=== PATIENT | female | born 1965 | race Caucasian/White ===

== ENCOUNTER 2018-02-08 21:09 | Emergency (ER) | payer OTHER ==
--- NOTE | 2018-02-08 21:26 | PDOC ---
History of Present Illness - General History Source: Patient Exam Limitations: No Limitations - General Chief Complaint: Pain, Acute Stated Complaint: STRESSED/CHEST PAIN Time Seen by Provider: 02/08/18 21:16 - History of Present Illness Initial Comments: This patient is a 52 year old female with PMHx of anxiety (on medication), extra heart beats & slow heart rate, who presents with chest pain around 8: 30pm. Patient states that today she has been having an especially stressful day. She states that she is in the process of moving and went to the [facility] today to take care of some tickets. She states that she has been busy running around doing various errands. She states that about 30 minutes prior to arrival she began experiencing chest pain. She states that it is not sharp but feels like a sinking pressure-like feeling. She states that it does not radiate to her jaw or arm. She states that she does suffer from anxiety and used to see a dental technologist 2 years ago who she had a positive stress test with but a negative angiogram. This unnerved her so she decided to see a new dental technologist. She states that she was put on a Holter monitor and was told by this dental technologist that she has a few extra beats but was never formally diagnosed with an arrhythmia. She states that her chest pain has mostly subsided since arriving to the ER Denies any recent nausea, vomiting, or shortness of breath. Denies any abdominal pain or lower extremity swelling. ROS General: No fevers or chills, no weakness, no weight loss HEENT: No change in vision. No sore throat, No ear pain Cardiovascular: +chest pain, no shortness of breath Respiratory:No cough, or wheezing. Gastrointestinal: No nausea, vomiting, diarrhea or constipation, No rectal bleeding Genitourinary: No dysuria, hematuria, or frequency Musculoskeletal: No joint or muscle pain or swelling Neurologic: No headache, vertigo, dizziness or loss of consciousness Psychiatric: No depression Skin: No rashes or easy bruising Endocrine: No increased thirst or abnormal weight change Allergic: No skin or latex allergy All other systems reviewed and normal PE General: Well-nourished well-developed individual, no acute distress HEENT: Throat: Normal, tonsils normal, no erythema or exudate Neck: Supple, no meningeal signs, no lymphadenopathy Eyes:Pupils equal reactive and round, extraocular motion intact Chest: Nontender to palpation Cardiac: Bradycardia. S1-S2 normal, regular rhythm, no murmurs rubs or gallops Respiratory: Lungs clear to auscultation bilateral Abdomen: Soft, nondistended, normal bowel sounds, nontender to palpation diffusely Extremities: Warm, dry, no cyanosis, clubbing, or edema Skin: No rashes Neuro: Alert and oriented x3, nonfocal exam, grossly intact, normal gait Psych: Normal mood and affect (Connie Ferrell) 02/08/18 22:28 A portion of this note was documented by scribe services under my direction. I have reviewed the details of the note, within reason, and agree with the documentation. The case summary and management plan written by me. Assessment and plan: This is a 52-year-old female who comes in complaining of approximately one hour of Septra sternal chest discomfort. Patient has history significant for chest pain in the past that resulted in a negative cardiac catheter. Patient's EKG showed a rate of 50, normal intervals no acute ST-T wave changes normal EKG with the exception of some bradycardia Patient says that her heart rate is always in the 50s sometimes lower Patient's discomfort had premature resolved at the time of my evaluation Patient's troponin was not measurable. Patient's heart score was 2 02/08/18 22:32 (Jeet Ruiz I) Past History - Past Medical History Allergies/Adverse Reactions: Allergies Allergy/AdvReac Type Severity Reaction Status Date / Time clarithromycin [From Biaxin] Allergy Verified 02/08/18 21:12 erythromycin base Allergy Verified 02/08/18 21:13 Penicillins Allergy Verified 02/08/18 21:11 Home Medications: Ambulatory Orders Sertraline HCl [Zoloft] 25 mg PO HS 02/08/18 Review of Systems - Review of Systems Comments:: 02/08/18 21:43 see HPI (Connie Ferrell) *Physical Exam - Vital Signs Last Vital Signs Temp Pulse Resp BP Pulse Ox 97.9 F 56 L 18 128/79 100 02/08/18 21:24 02/08/18 21:24 02/08/18 21:24 02/08/18 21:24 02/08/18 21:24 - Physical Exam Comments: 02/08/18 21:43 see HPI (Connie Ferrell) Heart Score/ECG Review - History History: Slightly suspicious - Electrocardiogram EKG: Normal - Age Age: 45-65 - Risk Factors Risk Factors Heart Score: Yes Hx Hypercholesterolemia, Yes Positive family hx of cardiac disease Based on the list above the patient has:: 1-2 risk factors - Troponin Troponin: </= normal limit - Score Heart Score - Total: 2 - ADDITIONAL ORDERS Additional order review: Laboratory Results 02/08/18 02/08/18 21:35 21:35 Creatine Kinase 60 Troponin I < 0.03 *DC/Admit/Observation/Transfer - Discharge Dispostion Decision to Admit order: No Diagnosis at time of Disposition: Atypical chest pain - Discharge Dispostion Disposition: HOME Condition at time of disposition: Stable - Patient Instructions Additional Instructions: Return to the emergency department immediately with ANY new, persistent or worsening symptoms. Continue any medications as previously prescribed by your physician. You should follow up with your primary doctor as soon as possible regarding today's emergency department visit. . Please make sure your doctor reviews the results of your emergency evaluation. Thank you for coming to the Emergency Department today for your care. It was a pleasure to see you today. Please note that your evaluation is INCOMPLETE until you follow-up with your doctor. - Attestations Scribe Attestion: 02/08/18 21:43 Documentation prepared by Connie Ferrell, acting as director of graduate medical education for Jeet Ruiz MD. (Connie Ferrell)
[2018-02-08 21:29] VITALS: BP 128/79; PULSE 56; TEMP 97.9; BMI 29.5
--- NOTE | 2018-02-11 15:09 | EKG ---
Test Reason : Blood Pressure : / mmHG Vent. Rate : 050 BPM Atrial Rate : 050 BPM P-R Int : 128 ms QRS Dur : 096 ms QT Int : 460 ms P-R-T Axes : 048 044 033 degrees QTc Int : 419 ms SINUS BRADYCARDIA OTHERWISE NORMAL ECG NO PREVIOUS ECGS AVAILABLE Confirmed by SALINA ORELLANA MD ([id number]) on 02/11/2018 3:09:27 PM Referred By: DELMI Confirmed By:SALINA ORELLANA MD
== END 2018-02-08 22:55 | disposition home or self-care (01) ==
LOC: FER 21:09
DX: R07.89 Other chest pain (principal); E78.00 Pure hypercholesterolemia, unspecified; Z82.49 Family history of ischemic heart disease and other diseases of the circulatory system
CPT/HCPCS: 36415; 82550; 84484; 93005; 99281-25